=== PATIENT | male | born 1940 | race Caucasian/White ===

== ENCOUNTER 2019-09-12 15:06 | Emergency (ER) | payer MEDICARE ==
[2019-09-12] MEDS ORDERED: POVIDONE IODINE 10 % 15 ML UD TOP ONE (15:09)
--- NOTE | 2019-09-12 15:51 | RAD ---
EXAM DESCRIPTION: Hand,Left 3 Views CLINICAL HISTORY: 78 years Male, laceration COMPARISON: None. Findings: Dorsal soft tissue swelling. Osteopenia. 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 No acute fracture or dislocation is identified. The fifth MCP joint is hyperextended with flexion of the PIP joint. IMPRESSION: No acute osseous abnormality identified. Electronically signed by: Terry Freitas MD 09/12/2019 3:49 PM CDT
--- NOTE | 2019-09-12 15:52 | RAD ---
EXAM DESCRIPTION: Hand,Right 3 Views CLINICAL HISTORY: 78 years Male, laceration COMPARISON: None. Findings: No acute fracture or dislocation. Osteopenia. Scattered degenerative changes. No radiopaque foreign body. Well-corticated ossific fragment adjacent the second digit DIP joint and radial styloid. IMPRESSION: No acute osseous abnormality. Electronically signed by: Terry Freitas MD 09/12/2019 3:50 PM CDT
[2019-09-12] MEDS ORDERED: TETANUS,DIPHTHERIA,PERTUSSIS 1 EA SYG IM ONE (16:05)
[2019-09-12] MEDS ORDERED: LIDOCAINE 1% 50 ML VIAL INJ ONE (17:32)
[2019-09-12] MEDS ORDERED: NEOMYCIN-BACITRACIN-POLYMYXIN 0.9 GM UD TOP ONE (18:42)
[2019-09-12 19:08] VITALS: BP 133/79; TEMP 97.8; O2SAT 95
[2019-09-12] MEDS ORDERED: CLINDAMYCIN PHOSPHATE 150 MG/ML VIAL IM ONE (19:23)
--- NOTE | 2019-09-12 19:32 | ED.PDOC ---
History of Present Illness - General Chief Complaint: Bite: Animal/Insect/Human Stated Complaint: laceration to LH Time Seen by Provider: 09/12/19 16:04 Source: patient, RN notes reviewed, Vital Signs reviewed, family Exam Limitations: no limitations - History of Present Illness Initial Comments: Patient presents with complaints of left fourth ring finger pain and right thumb pain. Patient was working in a chute trying to ear tag a bowl when it through its head up against him and caught his hands in the chute. We'll hands. Patient is unsure of his last tetanus shot and therefore he will receive one today. Patient does complain of pain in bilateral hands. Patient denies any headache, nausea, vomiting, diarrhea, chest pain, shortness of breath, blurry vision, dizziness. Pain is worse with movement or palpation of the hands. Nothing makes it better. Is burning and sharp in nature. Associated Symptoms: denies symptoms Allergies/Adverse Reactions: Allergies NO KNOWN ALLERGY Allergy (Verified 09/12/19 15:18) Home Medications: Ambulatory Orders Clindamycin HCl 300 mg PO QID #28 cap 09/12/19 Review of Systems - Review of Systems Constitutional: States: no symptoms reported EENTM: States: no symptoms reported Respiratory: States: no symptoms reported Cardiology: States: no symptoms reported Gastrointestinal/Abdominal: States: no symptoms reported Genitourinary: States: no symptoms reported Musculoskeletal: States: see HPI Skin: States: see HPI All other Systems: Reviewed and Negative Past Medical History (General) - Patient Medical History Hx Hypertension: Yes - Social History Hx Tobacco Use: No Family Medical History - Family History Mother Family History: No Known Physical Exam - Physical Exam General Appearance: Alert, No apparent distress, Well Developed, Well Groomed, Well Hydrated, Well Nourished Eye Exam: bilateral normal Ears, Nose, Throat: hearing grossly normal, normal pharynx Neck: non-tender, full range of motion, supple, normal inspection Respiratory: chest non-tender, lungs clear, normal breath sounds, no respiratory distress, no accessory muscle use Cardiovascular/Chest: normal peripheral pulses, regular rate, rhythm, no edema, no gallop, no JVD, no murmur Peripheral Pulses: radial,right: 2+, radial,left: 2+ Gastrointestinal/Abdominal: normal bowel sounds, non tender, soft Back Exam: normal inspection, no CVA tenderness, no vertebral tenderness Extremity: other - patient with a three-quarter circumferential laceration to the base of the left fourth finger. Right thumb with a 5 cm laceration, flap- like in nature of the right thumb.Refill less than 2 seconds in all digits. 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 Lymphatic: no adenopathy Progress - Progress Progress: 09/12/19 19:35 differential diagnoses: Bilateral hand fractures, hand sprain, skin laceration, open joint among others. Patient tolerated the procedure well. He will be started on IM clindamycin and be given a prescription for by mouth clindamycin to start taking tonight. Was given a tetanus shot. So now he is up-to-date on his tetanus. 4 removal. I discussed plan of care with the patient and his and they voice understanding and agreement. Rafael Corral M.D. #[id number] - Results/Orders Results/Orders: bilateral hand x-rays do not show any foreign bodies or fractures. His osteoarthritis and osteopenia. Procedures - Laceration/Wound Repair Left Finger Wound Length (cm): 5 - This is a near circumferential laceration of the left fourth Wound's Depth, Shape: into muscle, stellate Wound Explored: clean - digit at the Irrigated w/ Saline (cc's): 250 Betadine Prep?: No Anesthesia: 1% Lidocaine Volume Anesthetic (cc's): 8 Wound Debrided: minimal Wound Repaired With: sutures Suture Size/Type: 4:0, prolene Number of Sutures: 10 Layer Closure?: No Sterile Dressing Applied?: Yes Splint Applied?: No Sling Applied?: No Progress: patient tolerated the procedure well. Good hemostasis and good wound approximation. Right Finger Wound Length (cm): 5 - Flap-like with good wound edge approximation. Wound's Depth, Shape: superficial, flap, contused tissue Wound Explored: clean Betadine Prep?: No Wound Debrided: minimal Wound Repaired With: dermabond Sterile Dressing Applied?: No Splint Applied?: No Sling Applied?: No Progress: H and tolerated the procedure well. good Wound approximation. Departure - Departure Clinical Impression: Laceration, Hand contusion, Hand abrasion, non-infected Time of Disposition: 19:40 Disposition: Discharge to Home or Self Care Condition: Good Departure Forms: ED Discharge - Pt. Copy, Patient Portal Self Enrollment Instructions: Laceration Repair With Glue (DC), Wound Care (DC), Laceration Repair With Stitches (DC) Referrals: MAXINE CROWLEY [Primary Care Provider] - 1-2 Weeks Prescriptions: Clindamycin HCl 300 mg PO QID #28 cap Home Medications: Ambulatory Orders Clindamycin HCl 300 mg PO QID #28 cap 09/12/19
== END 2019-09-12 19:48 | disposition home or self-care (01) ==
LOC: ER 15:06
DX: S66.325A Laceration of extensor muscle, fascia and tendon of left ring finger at wrist and hand level, initial encounter (principal); S61.011A Laceration without foreign body of right thumb without damage to nail, initial encounter; I10 Essential (primary) hypertension; W23.1XXA Caught, crushed, jammed, or pinched between stationary objects, initial encounter; Y93.89 Activity, other specified; Y92.89 Other specified places as the place of occurrence of the external cause
CPT/HCPCS: 73130; 90471; 90715; J3490